=== PATIENT | male | born 1960 | race Caucasian/White ===

== ENCOUNTER 2016-09-27 10:29 | Emergency (ER) | payer BC ==
[2016-09-27 10:59] VITALS: BP 131/86
--- NOTE | 2016-09-27 11:15 | UC ---
Francis Anderson Claudia, scribed for Vitor Vasquez MD on 09/27/16 at 1110 . General HPI - HPI Summary HPI Summary: 56 year old male presents to the [facility] with multi-sx. He states that he has had cold Sx for over a month. He notes Sx of productive cough, sore throat,wheezing, congestion, sinus pressure, nasal discharge. He notes fever and chills when he first had the Sx last month. Pt states yesterday he began developing ear discomfort that he describes as "clogged". Pt denies any aggravting or alleviating factors as well as any other Sx including abd pain, SOB, CP. Pt states these Sx have been persistent and he is going away next week and decided to come to the [facility] for some relief of the Sx. - History of Current Complaint Chief Complaint: UCRespiratory Stated Complaint: URI Time Seen by Provider: 09/27/16 11:04 Hx Obtained From: Patient Onset/Duration: Gradual Onset, Lasting Weeks, Still Present Timing: Constant Associated Signs & Symptoms: Positive: Cough, Wheezing. Negative: Abdominal Pain, Chest Pain, SOB - Allergy/Home Medications Allergies/Adverse Reactions: Allergies Allergy/AdvReac Type Severity Reaction Status Date / Time No Known Allergies Allergy Verified 09/27/16 10:42 PMH/Surg Hx/FS Hx/Imm Hx Previously Healthy: Yes - Surgical History Surgical History: None - Family History Known Family History: Negative: Hypertension, Diabetes - Social History Occupation: Employed Full-time Lives: With Family Alcohol Use: Occasionally Substance Use Type: None Smoking Status (MU): Heavy Every Day Tobacco Smoker Amount Used/How Often: 1 ppd Review of Systems Constitutional: Negative - NO FEVER CHILLS Skin: Negative Eyes: Negative ENT: Sore Throat, Ear Ache, Nasal Discharge, Sinus Congestion Respiratory: Shortness Of Breath - NO SOB, Cough, Other - WHEEZING Cardiovascular: Negative - NO CP 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 Genitourinary: Negative Motor: Negative Neurovascular: Negative Musculoskeletal: Negative Neurological: Negative Psychological: Negative All Other Systems Reviewed And Are Negative: Yes Physical Exam Triage Information Reviewed: Yes Appearance: Well-Appearing, No Pain Distress, Well-Nourished Vital Signs: Initial Vital Signs Temp 98.4 F 09/27/16 10:38 Pulse 74 09/27/16 10:38 Resp 20 09/27/16 10:38 BP 131/86 09/27/16 10:38 Pulse Ox 100 09/27/16 10:38 Vital Signs Reviewed: Yes Eyes: Positive: Conjunctiva Clear ENT: Positive: Normal ENT inspection, Hearing grossly normal, Pharynx normal Neck exam: Normal Neck: Positive: Supple, Nontender, No Lymphadenopathy Respiratory: Positive: Chest non-tender, Lungs clear, Normal breath sounds Cardiovascular: Positive: RRR, No Murmur, Pulses Normal Abdominal Exam: Normal Skin Exam: Normal Course/Dx - Differential Dx - Multi-Symptom Provider Diagnoses: BRONCHITIS Discharge - Discharge Plan Condition: Stable Disposition: HOME Prescriptions: Albuterol HFA INHALER* [Ventolin HFA Inhaler*] 2 puff INH Q4H PRN #1 mdi PRN Reason: Wheezing Azithromycin TAB* [Zithromax TAB (Z-BRIT) 250 mg #6 tabs] 2 tab PO .TODAY, THEN 1 DAILY #1 brit Benzonatate CAP* [Tessalon 100 MG CAP*] 100 mg PO TID PRN #21 cap PRN Reason: Cough Patient Education Materials: Acute Bronchitis (ED) Referrals: Non Staff,Doctor [Primary Care Provider] - If Needed The documentation as recorded by the Francis desouza Claudia accurately reflects the service I personally performed and the decisions made by Christina sprague Hossein, MD.
== END 2016-09-27 11:25 | disposition home or self-care (01) ==
LOC: UCEAST 10:29
DX: J40 Bronchitis, not specified as acute or chronic (principal); Z72.0 Tobacco use
CPT/HCPCS: 99202; G0463